=== PATIENT | female | born 1975 | race Caucasian/White ===

== ENCOUNTER 2022-01-06 19:21 | Emergency (ER) | payer OTHER ==
[2022-01-06 19:32] VITALS: BP 152/87; PULSE 98; TEMP 97; BMI 29.2
[2022-01-06] MEDS ORDERED: LACTATED RINGERS SOLUTION 1000 ML INFUS.BAG IV ONE (20:11)
[2022-01-06] MEDS ORDERED: PSEUDOEPHEDRINE HCL 60 MG TABLET ONE (20:28)
[2022-01-06] MEDS ORDERED: PSEUDOEPHEDRINE HCL 30 MG TABLET PO ONE (20:30)
[2022-01-06 20:59] LABS: EOS % 10.4 % (0-4.5); HEMATOCRIT 39.9 % (32.4-45.2); HEMOGLOBIN 13.2 GM/dL (10.7-15.3); MCH 28.7 pg (25.7-33.7); MCHC 33.1 g/dl (32.0-36.0); MEAN CELL VOLUME 86.6 fl (80-96); MONO % 10.4 % (3.8-10.2); NEUT % 35.2 % (42.8-82.8); PLATELET COUNT 286 10^3/uL (134-434); RDW 13.4 % (11.6-15.6); WHITE BLOOD COUNT 5.5 K/mm3 (4.0-10.0)
[2022-01-06 21:03] LABS: EPI CELLS 5 /uL (0-25.1); HYALINE CASTS 0 /uL (0-3.1); PH,URINE 6.5 (5.0-8.0); URINE APPEARANCE CLEAR; URINE BACTERIA 17 /uL (0-1359); URINE BILIRUBIN NEGATIVE (NEGATIVE); URINE COLOR RED; URINE GLUCOSE (UA) NEGATIVE (NEGATIVE); URINE KETONE NEGATIVE (NEGATIVE); URINE LEUK ESTERASE NEGATIVE (NEGATIVE); URINE NITRITE NEGATIVE (NEGATIVE); URINE PROTEIN NEGATIVE (NEGATIVE); URINE RBC 6266 /uL (0-23.9); URINE UROBILINOGEN 0.2 mg/dL (0.2-1.0); URINE WBC 17 /uL (0-25.8)
[2022-01-06 21:53] LABS: ALBUMIN 3.8 g/dl (3.4-5.0); BLOOD UREA NITROGEN 16.3 mg/dL (7-18); CALCIUM 9.5 mg/dL (8.5-10.1)
[2022-01-06 21:56] LABS: CREATININE 0.8 mg/dL (0.55-1.3)
[2022-01-06 21:57] LABS: BILIRUBIN,TOTAL 0.1 mg/dL (0.2-1)
[2022-01-06 21:58] LABS: TOT PROT 7.2 g/dl (6.4-8.2)
== END 2022-01-07 01:03 | disposition home or self-care (01) ==
LOC: JER 19:21
DX: D25.9 Leiomyoma of uterus, unspecified (principal)
CPT/HCPCS: 36415; 76830-TC; 80053; 81003; 84484; 84703; 85025; 86850; 86900; 86901; 87077; 87086; 93005; 93010; 99285-25; C9803-CS; U0003; U0005

== ENCOUNTER 2022-10-24 17:38 | Emergency (ER) | payer OTHER ==
[2022-10-24 18:24] VITALS: BMI 26.6
[2022-10-24] MEDS ORDERED: ONDANSETRON 4 MG/2 ML VIAL IVPUSH ONE (19:00)
[2022-10-24] MEDS ORDERED: ACETAMINOPHEN 1000 MG/100 ML BAG IVPB ONE (19:01)
[2022-10-24] MEDS ORDERED: ACETAMINOPHEN INJECTION 100 ML IVPB ONE (19:18)
[2022-10-24] MEDS ORDERED: ONDANSETRON 4 MG/2 ML VIAL ONE (19:18)
[2022-10-24 20:07] LABS: EOS % 3.9 % (0-4.5); HEMATOCRIT 41.9 % (32.4-45.2); HEMOGLOBIN 13.5 GM/dL (10.7-15.3); LYMPH % 20.4 % (8-40); MCHC 32.3 g/dl (32.0-36.0); MEAN CELL VOLUME 86.6 fl (80-96); MEAN PLT VOLUME 8.3 fl (7.5-11.1); NEUT % 66.7 % (42.8-82.8); PLATELET COUNT 320 10^3/uL (134-434); RBC 4.83 M/mm3 (3.60-5.2); WHITE BLOOD COUNT 6.9 K/mm3 (4.0-10.0)
[2022-10-24 20:15] LABS: INR 1.02 (0.83-1.09); PROTHROMBIN TIME (PATIENT) 11.8 SEC (9.7-13.0)
[2022-10-24 20:18] LABS: ACTIVATED PTT 28.8 SECONDS (25.2-36.5)
[2022-10-24 21:11] LABS: BLOOD UREA NITROGEN 9.4 mg/dL (7-18); CALCIUM 9.7 mg/dL (8.5-10.1)
[2022-10-24 21:12] LABS: ALBUMIN 3.9 g/dl (3.4-5.0); MAGNESIUM 2.3 mg/dL (1.8-2.4)
[2022-10-24] MEDS ORDERED: KETOROLAC TROMETHAMINE 30 MG/1 ML VIAL IVPUSH ONE (21:12)
[2022-10-24 21:15] LABS: CREATININE 0.8 mg/dL (0.55-1.3); PHOSPHOROUS 3.9 mg/dL (2.5-4.9)
[2022-10-24] MEDS ORDERED: KETOROLAC TROMETHAMINE 30 MG/1 ML VIAL ONE (21:15)
[2022-10-24 21:16] LABS: BILIRUBIN,TOTAL 0.4 mg/dL (0.2-1); TOT PROT 7.5 g/dl (6.4-8.2)
[2022-10-24 23:30] VITALS: BP 115/65; PULSE 60; RESP 20; TEMP 98
== END 2022-10-25 00:22 | disposition home or self-care (01) ==
LOC: JER 17:38
PROC: 3E0333Z Introduction of Anti-inflammatory into Peripheral Vein, Percutaneous Approach (ICD-10-PCS; principal; 2022-10-24)
PROC: 3E0333Z Introduction of Anti-inflammatory into Peripheral Vein, Percutaneous Approach (ICD-10-PCS; 2022-10-24)
PROC: 3E033GC Introduction of Other Therapeutic Substance into Peripheral Vein, Percutaneous Approach (ICD-10-PCS; 2022-10-24)
DX: K80.00 Calculus of gallbladder with acute cholecystitis without obstruction (principal)
CPT/HCPCS: 0241U-QW; 36415; 76705-TC; 80053; 83735; 84100; 85025; 85610; 85730; 93005; 93010; 99285-25